=== PATIENT | female | born 2000 | race Caucasian/White ===

== ENCOUNTER 2021-04-20 14:20 | Emergency (ER) | payer SELFPAY ==
[~2021-04-20] VITALS: Ht 165 cm; Wt 82.0 kg
--- NOTE | 2021-04-20 14:53 | ED Lower Extremity ---
General Chief Complaint: Lower Extremity Stated Complaint: LEG CRAMPING Nursing Triage Note: ARRIVED VIA AMB TO FAST TRACK WITH COMPLAINTS OF LEFT LEG CRAMPING ET HURTING X3 DAYS AGO. DENIES INJURY. Nursing Sepsis Screen: No Definite Risk Source: patient Exam Limitations: no limitations (JAG MALONE APRN) History of Present Illness Date Seen by Provider: Apr 20, 2021 Time Seen by Provider: 14:51 Initial Comments 3 days of left calf cramping and foot pain. This is without antecedent injury. No fevers no chills no history of DVT. She was seen in the clinic and referred here. Onset: just prior to arrival Severity: moderate Pain/Injury Location: left leg Method of Injury: fell Modifying Factors: Worse With Movement (JAG MALONE APRN) Allergies and Home Medications Allergies Coded Allergies: No Known Drug Allergies (Unverified , 04/20/21) Home Medications Naproxen 500 Mg Tablet, 500 MG PO BID PRN for PAIN-MODERATE (5-7) Prescribed by: JAG MALONE on 04/20/21 1539 Patient Home Medication List Home Medication List Reviewed: Yes (JAG MALONE APRN) Review of Systems Constitutional: see HPI EENTM: see HPI Respiratory: no symptoms reported Cardiovascular: no symptoms reported Genitourinary: no symptoms reported Musculoskeletal: no symptoms reported Skin: no symptoms reported Psychiatric/Neurological: No Symptoms Reported (JAG MALONE APRN) Past Lfirvyo-Ddhbke-Wklmpc Hx Patient Social History Recent Infectious Disease Expo: No Recent Hopitalizations: No (JAG MALONE APRN) Seasonal Allergies Seasonal Allergies: No (JAG MALONE APRN) Past Medical History Surgeries: No Respiratory: No Cardiac: No Neurological: No Genitourinary: No Gastrointestinal: No Musculoskeletal: No Fractures Endocrine: Yes (HYPOGLYCEMIA) HEENT: No Cancer: No Did You Recieve Any Treatments: No Psychosocial: Yes Anxiety, PTSD, Depression Integumentary: No (JAG MALONE APRN) Physical Exam Vital Signs Vital Signs - First Documented 04/20/21 14:20 Temp 36.0 Pulse 71 Resp 16 B/P (MAP) 132/85 (101) Pulse Ox 99 O2 Delivery Room Air (RIGO CONTRERAS MD) Vital Signs Capillary Refill : Less Than 3 Seconds (JAG MALONE APRN) Height, Weight, BMI Height: '" Weight: lbs. oz. kg; 30.00 BMI Method: General Appearance: WD/WN, no apparent distress Neck: non-tender, full range of motion Respiratory: no respiratory distress, no accessory muscle use Hips: bilateral hip non-tender, bilateral hip normal inspection, bilateral hip normal range of motion Legs: left leg pain, left leg soft tissue tenderness, left leg swelling Knees: bilateral knee non-tender, bilateral knee normal inspection, bilateral knee normal range of motion Ankles: bilateral ankle non-tender, bilateral ankle normal inspection, bilateral ankle normal range of motion Feet: bilateral foot non-tender, bilateral foot normal inspection, bilateral foot normal range of motion Neurologic/Psychiatric: alert, normal mood/affect Skin: normal color, warm/dry The foot and leg have a normal appearance without apparent swelling, normal color normal temperature and with a strong dorsalis pedis pulse. She is tender to palpation over the calf and Achilles tendon (JAG MALONE APRN) Progress/Results/Core Measures Results/Orders Lab Results Laboratory Tests Test 04/20/21 14:57 04/20/21 15:16 Range/Units Glucometer 88 70-110 MG/DL White Blood Count 9.1 4.3-11.0 10^3/uL Red Blood Count 4.50 3.80-5.11 10^6/uL Hemoglobin 13.7 11.5-16.0 g/dL Hematocrit 41 35-52 % Mean Corpuscular Volume 91 80-99 fL Mean Corpuscular Hemoglobin 30 25-34 pg Mean Corpuscular Hemoglobin Concent 33 32-36 g/dL Red Cell Distribution Width 12.1 10.0-14.5 % Platelet Count 241 130-400 10^3/uL Mean Platelet Volume 9.3 9.0-12.2 fL Immature Granulocyte % (Auto) 0 % Neutrophils (%) (Auto) 58 42-75 % Lymphocytes (%) (Auto) 36 12-44 % Monocytes (%) (Auto) 5 0-12 % Eosinophils (%) (Auto) 1 0-10 % Basophils (%) (Auto) 0 0-10 % Neutrophils # (Auto) 5.2 1.8-7.8 10^3/uL Lymphocytes # (Auto) 3.2 1.0-4.0 10^3/uL Monocytes # (Auto) 0.5 0.0-1.0 10^3/uL Eosinophils # (Auto) 0.1 0.0-0.3 10^3/uL Basophils # (Auto) 0.0 0.0-0.1 10^3/uL Immature Granulocyte # (Auto) 0.0 0.0-0.1 10^3/uL Sodium Level 140 135-145 MMOL/L Potassium Level 3.7 3.6-5.0 MMOL/L Chloride Level 109 H 98-107 MMOL/L Carbon Dioxide Level 17 L 21-32 MMOL/L Anion Gap 14 5-14 MMOL/L Blood Urea Nitrogen 8 7-18 MG/DL Creatinine 0.83 0.60-1.30 MG/DL Estimat Glomerular Filtration Rate > 60 BUN/Creatinine Ratio 10 Glucose Level 83 70-105 MG/DL Calcium Level 9.4 8.5-10.1 MG/DL (RIGO CONTRERAS MD) Medications Given in ED Current Medications Medications Dose Ordered Sig/Mauricio Route Start Time Stop Time Status Last Admin Dose Admin Acetaminophen/ Hydrocodone Bitart 1 ea ONCE ONCE PO 04/20/21 15:00 04/20/21 15:01 DC 04/20/21 15:14 1 EA (RIGO CONTRERAS MD) Vital Signs/I&O 04/20/21 04/20/21 14:20 15:52 Temp 36.0 36.0 Pulse 71 71 Resp 16 16 B/P (MAP) 132/85 (101) 132/85 (101) Pulse Ox 99 99 O2 Delivery Room Air (RIGO CONTRERAS MD) Blood Pressure Mean: 101 Departure Communication (Admissions) DC to home with a walking boot. (JAG MALONE APRN) Impression Primary Impression: Achilles tendinitis of left lower extremity Disposition: HOME, SELF-CARE Condition: Stable Departure-Patient Inst. Decision time for Depature: 14:52 (JAG MALONE APRN) Patient Instructions: Achilles Tendinopathy (DC) Add. Discharge Instructions: 1. Wear the boot as directed. You can take it off when the leg starts to feel better. Steroids and pain medication as directed in the meantime. All discharge instructions reviewed with patient and/or family. Voiced understanding. Scripts Naproxen (Naprosyn) 500 Mg Tablet 500 MG PO BID PRN for PAIN-MODERATE (5-7), #30 TAB 0 Refills Prov: JAG MALONE APRN 04/20/21 Work/School Note: Work Release Form Date Seen in the Emergency Department: Apr 20, 2021 Return to Work: Apr 22, 2021 Attending physician note: I was physically present in the emergency room as attending physician at the time of this patient's encounter, but I was not directly involved in the care or decision-making for this patient. (RIGO CONTRERAS MD) JAG MALONE APRN Apr 20, 2021 14:53 RIGO CONTRERAS MD Apr 20, 2021 18:24
[2021-04-20] MEDS ORDERED: HYDROcodone/APAP 5 MG/325 MG (LORTAB) TAB PO ONE (15:00)
[2021-04-20 15:19] LABS: BASOPHILS % (AUTO) 0 % (0-10); EOSINOPHILS # (AUTO) 0.1 10^3/uL (0.0-0.3); EOSINOPHILS % (AUTO) 1 % (0-10); HEMATOCRIT 41 % (35-52); HEMOGLOBIN 13.7 g/dL (11.5-16.0); LYMPHOCYTES # (AUTO) 3.2 10^3/uL (1.0-4.0); LYMPHOCYTES % (AUTO) 36 % (12-44); MEAN CORPUSCULAR HEMOGLOBIN 30 pg (25-34); MEAN CORPUSCULAR HGB CONC 33 g/dL (32-36); MEAN CORPUSCULAR VOLUME 91 fL (80-99); MEAN PLATELET VOLUME 9.3 fL (9.0-12.2); MONOCYTES # (AUTO) 0.5 10^3/uL (0.0-1.0); MONOCYTES % (AUTO) 5 % (0-12); NEUTROPHILS # (AUTO) 5.2 10^3/uL (1.8-7.8); NEUTROPHILS % (AUTO) 58 % (42-75); PLATELET COUNT 241 10^3/uL (130-400); WHITE BLOOD COUNT 9.1 10^3/uL (4.3-11.0)
[2021-04-20 15:29] LABS: CHLORIDE 109 MMOL/L (98-107); POTASSIUM 3.7 MMOL/L (3.6-5.0); SODIUM 140 MMOL/L (135-145)
[2021-04-20 15:31] LABS: CALCIUM 9.4 MG/DL (8.5-10.1); GLUCOSE 83 MG/DL (70-105)
[2021-04-20 15:32] LABS: CARBON DIOXIDE 17 MMOL/L (21-32)
[2021-04-20 15:35] LABS: CREATININE SERUM 0.83 MG/DL (0.60-1.30); GFR ESTIMATED > 60
[2021-04-20 15:36] LABS: BUN/CREATININE RATIO 10
[2021-04-20] MEDS ORDERED: NAPR-1071 PO (15:39)
--- NOTE | 2021-04-20 15:42 | Diagnostic Imaging Report ---
PROCEDURE: US left lower extremity venous. TECHNIQUE: Multiple real-time grayscale images were obtained over the left lower extremity in various projections. Additional duplex Doppler and color Doppler images were also obtained. INDICATION: Left leg pain and cramping. FINDINGS: Color Doppler imaging shows normal blood flow from the left common femoral vein to the ankle. Calf compression shows normal augmentation of flow at the popliteal level with Doppler sampling. IMPRESSION: No evidence of venous thrombosis in the left lower extremity. Dictated by: Dictated on workstation # [id number]
[2021-04-20 15:52] VITALS: BP 132/85
== END 2021-04-20 15:52 | disposition home or self-care (01) ==
LOC: ER 14:23
DX: M76.62 Achilles tendinitis, left leg (principal)
CPT/HCPCS: 80048; 82947; 85025; 93971; 99283; L2114; 36415

== ENCOUNTER 2021-07-21 11:11 | Emergency (ER) | payer SELFPAY ==
[~2021-07-21] VITALS: Ht 165.1 cm; Wt 84.8 kg
[~2021-07-21 11:11] MED LIST: NAPR-1071 PO
--- NOTE | 2021-07-21 11:29 | ED General ---
General Chief Complaint: General Problems/Pain Stated Complaint: LEFT ARM NUMBNESS INTO CHEST,WEAKNESS,HEADACHE Nursing Triage Note: PT TO RM 7 BY WHEELCHAIR WITH COMPLAINT OF INTERMITTENT LEFT ARM NUMBNESS AND HEADACHE. STATES SYMPTOMS STARTED AROUND 09. Source of Information: Patient Exam Limitations: No Limitations History of Present Illness Date Seen by Provider: Jul 21, 2021 Time Seen by Provider: 11:26 Initial Comments To ER by private vehicle with reports of left arm numbness. This began about 9 AM this morning and lasted for 15 minutes before resolving on its own. Its been intermittent a few times since it started. The pain started in the fingertips and radiated up to her left ear. She has a headache rated at 5 out of 10. She typically gets headaches about 3 times a month but more recently it has only been about once or twice a month. No associated vomiting. This headache was sudden in onset. No vomiting. She takes no daily medications. The arm was numb but motor function was retained. She was able to move it and use it normally. She has never had this before with any of her previous headaches. Timing/Duration: 1-2 Days Severity: Moderate Associated Systoms: Denies Symptoms Allergies and Home Medications Allergies Coded Allergies: No Known Drug Allergies (Unverified , 04/20/21) Patient Home Medication List Home Medication List Reviewed: Yes Naproxen (Naprosyn) 500 Mg Tablet, 500 MG PO BID PRN for PAIN-MODERATE (5-7) Prescribed by: JAG MALONE on 04/20/21 1539 Review of Systems Review of Systems Constitutional: see HPI EENTM: see HPI Respiratory: no symptoms reported Cardiovascular: no symptoms reported Genitourinary: no symptoms reported Musculoskeletal: no symptoms reported Skin: no symptoms reported Psychiatric/Neurological: No Symptoms Reported Hematologic/Lymphatic: No Symptoms Reported Immunological/Allergic: no symptoms reported Past Twqzhdv-Begkwd-Icpkru Hx Patient Social History Tobacco Use?: Yes Tobacco type used: Cigarettes Smoking Status: Current Everyday Smoker Use of E-Cig and/or Vaping dev: No Substance use?: No Alcohol Use?: No Pt feels they are or have been: No Seasonal Allergies Seasonal Allergies: No Past Medical History Surgeries: No Respiratory: No Cardiac: No Neurological: No Genitourinary: No Gastrointestinal: No Musculoskeletal: No Fractures Endocrine: Yes (HYPOGLYCEMIA) HEENT: No Cancer: No Did You Recieve Any Treatments: No Psychosocial: Yes Anxiety, PTSD, Depression Integumentary: No Physical Exam Vital Signs Vital Signs - First Documented 07/21/21 11:15 Temp 36.0 Pulse 82 Resp 17 B/P (MAP) 138/99 (112) Pulse Ox 100 O2 Delivery Room Air Capillary Refill : Less Than 3 Seconds Height, Weight, BMI Height: '" Weight: lbs. oz. kg; 31.00 BMI Method: General Appearance: No Apparent Distress, WD/WN, Other (Alert and oriented, pleasant, no distress. Hemodynamically stable. Rates headache 5 out of 10. No nuchal rigidity.) Eyes: Bilateral Eye Normal Inspection, Bilateral Eye PERRL, Bilateral Eye EOMI HEENT: PERRL/EOMI, TMs Normal Neck: Full Range of Motion, Normal Inspection Respiratory: No Accessory Muscle Use, No Respiratory Distress Cardiovascular: Regular Rate, Rhythm, Normal Peripheral Pulses Gastrointestinal: Normal Bowel Sounds, Non Tender, Soft Extremity: Normal Capillary Refill, Normal Inspection Neurologic/Psychiatric: Alert, Oriented x3 Skin: Normal Color, Warm/Dry Progress/Results/Core Measures Suspected Sepsis SIRS Temperature: Pulse: 82 Respiratory Rate: 17 Laboratory Tests 07/21/21 11:18: White Blood Count 8.2 Blood Pressure 138 /99 Mean: 112 Laboratory Tests 07/21/21 11:18: Creatinine 0.82, Platelet Count 179, Total Bilirubin 0.8 Results/Orders Lab Results Laboratory Tests Test 07/21/21 11:18 Range/Units White Blood Count 8.2 4.3-11.0 10^3/uL Red Blood Count 5.00 3.80-5.11 10^6/uL Hemoglobin 15.3 11.5-16.0 g/dL Hematocrit 46 35-52 % Mean Corpuscular Volume 93 80-99 fL Mean Corpuscular Hemoglobin 31 25-34 pg Mean Corpuscular Hemoglobin Concent 33 32-36 g/dL Red Cell Distribution Width 11.9 10.0-14.5 % Platelet Count 179 130-400 10^3/uL Mean Platelet Volume 11.6 9.0-12.2 fL Immature Granulocyte % (Auto) 0 % Neutrophils (%) (Auto) 50 42-75 % Lymphocytes (%) (Auto) 42 12-44 % Monocytes (%) (Auto) 6 0-12 % Eosinophils (%) (Auto) 1 0-10 % Basophils (%) (Auto) 0 0-10 % Neutrophils # (Auto) 4.2 1.8-7.8 10^3/uL Lymphocytes # (Auto) 3.4 1.0-4.0 10^3/uL Monocytes # (Auto) 0.5 0.0-1.0 10^3/uL Eosinophils # (Auto) 0.1 0.0-0.3 10^3/uL Basophils # (Auto) 0.0 0.0-0.1 10^3/uL Immature Granulocyte # (Auto) 0.0 0.0-0.1 10^3/uL Percent Immature Platelet Fraction 7.4 0.0-7.6 % Sodium Level 138 135-145 MMOL/L Potassium Level 3.6 3.6-5.0 MMOL/L Chloride Level 109 H 98-107 MMOL/L Carbon Dioxide Level 16 L 21-32 MMOL/L Anion Gap 13 5-14 MMOL/L Blood Urea Nitrogen 12 7-18 MG/DL Creatinine 0.82 0.60-1.30 MG/DL Estimat Glomerular Filtration Rate 87 BUN/Creatinine Ratio 15 Glucose Level 90 70-105 MG/DL Calcium Level 10.0 8.5-10.1 MG/DL Corrected Calcium 8.5-10.1 MG/DL Total Bilirubin 0.8 0.1-1.0 MG/DL Aspartate Amino Transf (AST/SGOT) 21 5-34 U/L Alanine Aminotransferase (ALT/SGPT) 21 0-55 U/L Alkaline Phosphatase 54 40-136 U/L Total Protein 8.4 H 6.4-8.2 GM/DL Albumin 5.0 H 3.2-4.5 GM/DL Serum Test, Qualitative NEGATIVE NEGATIVE My Orders Orders - JAG MALONE APRN Ct Head Wo (07/21/21 11:24) Cbc With Automated Diff (07/21/21 11:24) Comprehensive Metabolic Panel (07/21/21 11:24) Butalbital/Apap/Caffeine Tab (Fioricet T (07/21/21 11:30) Hcg,Qualitative Serum (07/21/21 11:30) Medications Given in ED Current Medications Medications Dose Ordered Sig/Mauricio Route Start Time Stop Time Status Last Admin Dose Admin Acetaminophen/ Butalbital/ Caffeine 2 ea ONCE PRN PO 07/21/21 11:30 07/21/21 11:30 2 EA Vital Signs/I&O 07/21/21 11:15 Temp 36.0 Pulse 82 Resp 17 B/P (MAP) 138/99 (112) Pulse Ox 100 O2 Delivery Room Air Capillary Refill : Less Than 3 Seconds Blood Pressure Mean: 112 Diagnostic Imaging Diagonstic Imaging: CT Comments NAME: AILYN SWANSON [facility] REC#: [id number] PT STATUS: REG ER : 2000 PHYSICIAN: JAG MALONE APRN ADMIT DATE: 07/21/21/ER Draft Date of Exam:07/21/21 CT HEAD WO EXAMINATION: CT head without contrast. TECHNIQUE: Multiple contiguous axial images were obtained through the brain without the use of intravenous contrast. All CT scans use one or more of the following dose optimizing techniques: automated exposure control, MA and/or KvP adjustment based on patient size and exam type or iterative reconstruction. HISTORY: Headache and left arm weakness COMPARISON: None available. FINDINGS: The martinez-white matter differentiation is normal. No mass effect or midline shift. The ventricles are normal in size and configuration. Basilar cisterns are patent. There are no intra- or extra-axial fluid collections. There is no intracranial hemorrhage. The orbits are normal. Paranasal sinuses are normal. Mastoid air cells are clear. No soft tissue abnormality is seen. No osseus lesions or fractures are seen. IMPRESSION: 1. No acute intracranial abnormality. Dictated on workstation # [id number] Dict: 07/21/21 1153 Trans: 07/21/21 1155 [facility] [id number] Interpreted by: ANNABEL LANGE MD Electronically signed by: Departure Impression Primary Impression: Paresthesia and pain of left extremity Additional Impression: Headache Disposition: 01 HOME, SELF-CARE Condition: Stable Departure-Patient Inst. Decision time for Depature: 12:06 Referrals: NO,LOCAL PHYSICIAN (PCP/Family) Primary Care Physician Patient Instructions: HEADACHE, Paresthesia (DC) JAG MALONE APRN Jul 21, 2021 11:29
[2021-07-21] MEDS ORDERED: ACET/BUTAL/CAFF (FIORICET) TAB PO PRN (11:30)
[2021-07-21 11:31] LABS: BASOPHILS % (AUTO) 0 % (0-10); EOSINOPHILS # (AUTO) 0.1 10^3/uL (0.0-0.3); EOSINOPHILS % (AUTO) 1 % (0-10)
[2021-07-21 11:32] LABS: HEMATOCRIT 46 % (35-52); HEMOGLOBIN 15.3 g/dL (11.5-16.0); LYMPHOCYTES # (AUTO) 3.4 10^3/uL (1.0-4.0); LYMPHOCYTES % (AUTO) 42 % (12-44); MEAN CORPUSCULAR HEMOGLOBIN 31 pg (25-34); MEAN CORPUSCULAR HGB CONC 33 g/dL (32-36); MEAN CORPUSCULAR VOLUME 93 fL (80-99); MEAN PLATELET VOLUME 11.6 fL (9.0-12.2); MONOCYTES # (AUTO) 0.5 10^3/uL (0.0-1.0); MONOCYTES % (AUTO) 6 % (0-12); NEUTROPHILS # (AUTO) 4.2 10^3/uL (1.8-7.8); NEUTROPHILS % (AUTO) 50 % (42-75); PLATELET COUNT 179 10^3/uL (130-400); WHITE BLOOD COUNT 8.2 10^3/uL (4.3-11.0)
[2021-07-21 11:36] LABS: CHLORIDE 109 MMOL/L (98-107); POTASSIUM 3.6 MMOL/L (3.6-5.0); SODIUM 138 MMOL/L (135-145)
[2021-07-21 11:39] LABS: GLUCOSE 90 MG/DL (70-105); TOTAL PROTEIN 8.4 GM/DL (6.4-8.2)
[2021-07-21 11:40] LABS: CARBON DIOXIDE 16 MMOL/L (21-32)
[2021-07-21 11:41] LABS: BILIRUBIN,TOTAL 0.8 MG/DL (0.1-1.0)
[2021-07-21 11:42] LABS: ALKALINE PHOSPHATASE 54 U/L (40-136); CREATININE SERUM 0.82 MG/DL (0.60-1.30); GFR ESTIMATED 87
[2021-07-21 11:43] LABS: BUN/CREATININE RATIO 15
[2021-07-21 11:45] LABS: ALANINE AMINOTRANSFERASE 21 U/L (0-55)
--- NOTE | 2021-07-21 11:55 | Diagnostic Imaging Report ---
EXAMINATION: CT head without contrast. TECHNIQUE: Multiple contiguous axial images were obtained through the brain without the use of intravenous contrast. All CT scans use one or more of the following dose optimizing techniques: automated exposure control, MA and/or KvP adjustment based on patient size and exam type or iterative reconstruction. HISTORY: Headache and left arm weakness COMPARISON: None available. FINDINGS: The martinez-white matter differentiation is normal. No mass effect or midline shift. The ventricles are normal in size and configuration. Basilar cisterns are patent. There are no intra- or extra-axial fluid collections. There is no intracranial hemorrhage. The orbits are normal. Paranasal sinuses are normal. Mastoid air cells are clear. No soft tissue abnormality is seen. No osseus lesions or fractures are seen. IMPRESSION: 1. No acute intracranial abnormality. Dictated by: Dictated on workstation # [id number]
[2021-07-21 12:19] VITALS: BP 119/83
[2021-07-21] MEDS ORDERED: TOPI25CA12 PO (12:21)
== END 2021-07-21 12:19 | disposition home or self-care (01) ==
LOC: EDUNIT# 11:11 → ER 11:12
DX: R20.2 Paresthesia of skin (principal); M79.602 Pain in left arm; R51.9 Headache, unspecified; F17.210 Nicotine dependence, cigarettes, uncomplicated
CPT/HCPCS: 36415; 70450; 80053; 84703; 85025